=== PATIENT | female | born 1960 | race Caucasian/White ===

== ENCOUNTER → 2022-01-05 09:49 | Outpatient (BNVA) | payer OTHER, SELFPAY | PROVIDERS: PCP Internal Medicine; Visit Provider Internal Medicine Rheumatology | DX: M79.7 Fibromyalgia (principal); M51.36 Other intervertebral disc degeneration, lumbar region; M22.41 Chondromalacia patellae, right knee; G25.81 Restless legs syndrome | CPT/HCPCS: 99212 ==

== ENCOUNTER 2022-08-26 11:07 | Outpatient (REF) | payer OTHER, SELFPAY | END 2022-08-26 11:08 | disposition home or self-care (01) | LOC: CF 11:07 | PROVIDERS: PCP Internal Medicine; Visit Provider Internal Medicine Rheumatology | DX: M79.7 Fibromyalgia (principal); M25.551 Pain in right hip; M25.552 Pain in left hip; M22.41 Chondromalacia patellae, right knee; M51.36 Other intervertebral disc degeneration, lumbar region | CPT/HCPCS: 73502; 99212 ==

== ENCOUNTER 2022-08-26 12:05 | Outpatient (REF) | payer OTHER, SELFPAY ==
[2022-08-26 13:47] LABS: C Reactive Protein 1.02 mg/dL (< or = 0.50)
[2022-08-26 14:23] LABS: Erythrocyte Sedimentation Rate 20 MM/HR (0-20)
== END 2022-08-26 12:06 | disposition home or self-care (01) ==
LOC: HO.10HDL 12:05
PROVIDERS: Visit Provider Internal Medicine Rheumatology
DX: M25.551 Pain in right hip (principal); M25.552 Pain in left hip
CPT/HCPCS: 36415; 85652; 86140

== ENCOUNTER 2023-01-05 08:56 | Outpatient (AMB) | payer OTHER, SELFPAY ==
[2023-01-05 08:58] VITALS: BP 104/70; PULSE 89; TEMP 36.1; O2SAT 98; BMI 28.9
--- NOTE | 2023-01-05 08:58 | A.OFFVIS_ITS ---
Intake Vital Signs 01/05/23 08:58 Height 5 ft 7 in Weight 184 lb 4.903 oz BMI 28.9 BP 104/70 Blood Pressure Location Lt brachial Position Sitting Pulse 89 Pulse Source Pulse Oximeter Temp 97 F Temp Source Skin Pulse Oximetry (%) 98 Oxygen Delivery Method Room Air Intake Visit Reasons: 1Y follow up Intake Note: Patient presents today to follow up on hip pain. Reports having a flare up on left knee about 3 weeks ago, took prednisone she had at home. Would like to know hip xr result from last visit. Assistant Product Manager Required: No Accompanied by: Self / Same As Patient Allergies acetaminophen [From Vicodin] Adverse Reaction (Unknown, Verified 01/05/23 09:02) Dizziness, N/V hydrocodone [From Vicodin] Adverse Reaction (Unknown, Verified 01/05/23 09:02) Dizziness, N/V oxycodone [From Percocet] Adverse Reaction (Unknown, Verified 01/05/23 09:02) Dizziness, N/V HPI HPI Comments History of Present Illness Details The patient presents today for evaluation of her fibromyalgia and recent onset of left knee swelling. She has had previous arthroscopy in that knee maybe 10 years ago. It was occasionally symptomatic after that but about a week ago she developed painful swelling in the knee. The pain started posteriorly but there was also anterior swelling. She was treated with a course of prednisone and the pain has pretty much resolved. She had a similar episode of pain with not much swelling in the right knee earlier in the year. There is no history of exposure to tics. She has no hyperuricemia or history of kidney stones. She tell gets pain in the lower back, buttock area, and lateral hips attributed to fibromyalgia and osteoarthritis. She remains on some Cymbalta 30 mg twice a day, gabapentin 100 mg taking 1 tablet in the morning and 300 at night for the fibromyalgia. She finds the daytime gabapentin helpful for her. It is not sedating. She also is on ropinirole at night and occasional [id number] ibuprofen. [facility] Medical History (Updated 01/05/23 @ 09:44 by Skinny Alba MD) Asthma Degenerative disc disease, lumbar Recurrent cold sores Depression VAIN III (vaginal intraepithelial neoplasia III) Esophageal reflux Fibromyalgia IBS (irritable bowel syndrome) Surgical History History of lumbar surgery S/P arthroscopy of left shoulder S/P left knee arthroscopy Hx of endoscopy Hx of colonoscopy Family History Father Diabetes Mother Diabetes Glaucoma Hx of CABG, Onset Age: 66 Osteoarthritis of both knees Other Family history of Crohn's disease Family history of polyps in the colon Social History Household Members Other:: Son Alcohol intake: current Alcohol intake frequency: holidays/special occasions only Patient Tobacco Use Status: Never used Tobacco Current occupational status: disabled Review of Systems Const Details: Negative for appetite change, weight change, fever, chills, malaise and fatigue Eyes Details: Negative for vision change, dry eyes,headaches and dizziness ENT Details: Negative for hearing change, tinnitus, oral ulcer, nose bleeds and oral dryness. Card Details: Negative chest pain, edema and syncope Resp Details: Negative for SOB, cough and wheezing GI Details: Negative indigestion/heartburn, nausea, abdominal pain, bowel changes, diarrhea, constipation and bloody stool. Skin/Breast Details: Negative for itching, rash, hives, Raynaud's symptoms, sun sensitivity, and skin cancer Neuro Details: Numbness in the right foot and ankle she thinks is due to her lumbar disc surgery or this disease. However that symptom seems to be stable. Negative for epilepsy, palsy, stroke, changes in speech, and weakness Gilles/Lymph Details: Negative for excessive bruising or bleeding. Physical Exam Vital Signs: Last Vital Signs Temp 97 F 01/05/23 08:58 Pulse 89 01/05/23 08:58 BP 104/70 01/05/23 08:58 Pulse Ox 98 01/05/23 08:58 Oxygen Delivery Method Room Air 01/05/23 08:58 BMI result Body Mass Index 28.9 APPEARANCE: Patient in no acute distress EYES no redness, pupils equal and reactive to light, eyelids normal . EXTREMITIES: No edema, no calf tenderness, normal peripheral pulses. NEURO: Oriented and alert x3. No focal weakness. Reflexes symmetric. Numbness over the right heel and lateral aspect of the foot. Gait normal. SKIN: No inflammatory or neoplastic lesions. Normal color and turgor JOINT EXAM: ?? Cervical Spine:.? Slight discomfort with extremes of normal range of motion.? Slight cervical muscle tenderness. Thoracic Spine:.? No scoliosis.? No tenderness on palpation. Lumbar Spine:.? Alignment normal.? She has mild pain with flexion at 60 degrees.? Some paraspinal muscle tenderness.? Straight leg raising causes lumbar pain at about 60 degrees. Strength and reflexes in the lower extremities seem normal. Chest Wall:.? No tenderness, swelling, increased warmth or erythema. Hands:? Right:? Normal pain-free range of motion.? No tenderness in the MCP or PIP joints. No soft tissue swelling.? No flexor tendon triggering, thenar atrophy or sensory loss.? Left:? Normal pain-free range of motion with no tenderness in the small joints of the hand. These joints also have no soft tissue swelling, increased warmth or erythema.? No flexor tendon triggering thenar atrophy or sensory loss.. Wrists:.? Normal pain-free range of motion with slight tenderness but no swelling, increased warmth or erythema. Elbows:. Normal pain-free range of motion without tenderness, swelling, increased warmth or erythema. Shoulders:.??Right:? Full range of motion without pain. No tenderness, weakness, swelling, increased warmth or erythema.? Left:? Slight pain with extremes of normal range of motion with some minimal anterior tenderness without abductor weakness, swelling or adenopathy. Hips:.? Right:? Some lumbar and lateral pain with extremes of normal internal or external rotation.? No groin pain with motion.? Left:? Full range of motion with mild lumbar pain at the extremes of normal range of motion. No groin pain with motion. Hip bursa:.? No tenderness. Knees:? Right:? Slight patellofemoral crepitus and pain with the extremes of normal extension with some mild medial compartment tenderness but no redness or effusion.? Left: ? Normal pain-free range of motion with slight patellofemoral crepitus and mild medial and popliteal tenderness but no swelling, increased warmth or erythema.? Ankles:? Right:? Normal range of motion without pain mild medial lateral tenderness.? No swelling or redness.? Left:? Normal pain-free range of motion without tenderness, swelling, increased warmth or erythema. Feet:? Normal pain-free range of motion with slight tenderness in the insteps.? Otherwise no areas of tenderness, swelling, increased warmth or erythema. Tender points: mild? tenderness to digital palpation at the occiput, trapezius, left second rib, both? knees, greater trochanter and gluteal area bilaterally. ? Results Reviewed Results Reviewed: Laboratory Tests 08/26/22 12:13 ESR 20 C-Reactive Protein 1.[address] [address] XRay Report Signed Patient: Jacqueline Fabian MR#: [id number] : 1960 Acct:[id number] Age/Sex: 62 / F ADM Date: 08/26/[address]: Skinny Alba MD Ordering Physician: Skinny Alba MD Date of Service: 08/26/22 Procedure(s): XR hip RT min 2V Accession Number(s): [id number] cc: Skinny Alba MD~ Bilateral hips, 08/26/2022. INDICATION: Bilateral hip pain. COMPARISON: None TECHNIQUE: AP and frog lateral views of each hip. FINDINGS: Very mild bilateral joint narrowings. No fracture, dislocation or osseous lesions. Visualized SI joints within normal limits. XR/XR hip RT min 2V IMPRESSION: No acute bony pathology bilateral hips. Dictated By: Christi Casillas MD Signed By: <Electronically signed by Christi Casillas MD in [place]> April 2022 lab work from [facility]: White count 11.6, hemoglobin 13.8, sed rate 20, creatinine 0.75, uric acid 4.5 Radiographs from [facility]: April 2022 Left knee read as showing mild osteoarthritis and chondrocalcinosis within an effusion. 12/22/2022 right knee x-ray read as showing mild osteoarthritis. Assessment & Plan Assessment & Plan (1) Swollen L knee: Code(s): M25.462 - Effusion, left knee (2) Fibromyalgia: Code(s): M79.7 - Fibromyalgia (3) Degenerative disc disease, lumbar: Comment: surgery 08/2020 Code(s): M51.36 - Other intervertebral disc degeneration, lumbar region (4) Osteoarthritis of knees, bilateral: Code(s): M17.0 - Bilateral primary osteoarthritis of knee Plan The patient has known lumbar osteoarthritis and fibromyalgia but seemingly has developed more frequent knee pain over the past year. This has been accompanied occasionally by swelling raising the question of inflammatory arthritis. Both knees radiographically have shown mild osteoarthritis. The left knee x-ray did show some chondrocalcinosis so additionally pseudogout is in the differential as is Lyme disease, gout, and other inflammatory arthropathies. However her uric acid has been measured a few times over the years and has always been normal making the likelihood of gout very low. At present there does not seem to be any swelling so the prednisone has been effective at relieving her symptoms. We will check for Lyme disease, acute phase reactants, and CBC. If symptoms continue with a more chronic nature, physical therapy and/or a corticosteroid in jection would be appropriate. If she gets another episode of swelling it would be reasonable to try to aspirate the knee to see if we can document crystal induced arthritis and to assess the degree of inflammatory response. Orders: Orders Lyme IgG/IgM w/reflex to WB Today M25.462 - Effusion, left knee C Reactive Protein Today M25.462 - Effusion, left knee Complete Blood Count Auto Diff Today M25.462 - Effusion, left knee Erythrocyte Sedimentation Rate Today M25.462 - Effusion, left knee Uric Acid Today M25.462 - Effusion, left knee Coding Level of Care Code Est Pt Level 4 (40413) Diagnoses Swollen L knee M25.462 Fibromyalgia M79.7 Degenerative disc disease, lumbar M51.36 Osteoarthritis of knees, bilateral M17.0
== END 2023-01-05 09:32 | disposition home or self-care (01) ==
PROVIDERS: PCP Internal Medicine; Visit Provider Internal Medicine Rheumatology
DX: M25.462 Effusion, left knee (principal); M79.7 Fibromyalgia; M51.36 Other intervertebral disc degeneration, lumbar region; M17.0 Bilateral primary osteoarthritis of knee
CPT/HCPCS: 99214

== ENCOUNTER → 2023-01-05 08:56 | Outpatient (BNVA) | payer OTHER, SELFPAY | PROVIDERS: Visit Provider Internal Medicine Rheumatology | DX: M25.462 Effusion, left knee (principal); M79.7 Fibromyalgia; M51.36 Other intervertebral disc degeneration, lumbar region; M17.0 Bilateral primary osteoarthritis of knee | CPT/HCPCS: 99212 ==

== ENCOUNTER 2023-01-05 09:34 | Outpatient (REF) | payer OTHER, SELFPAY ==
[2023-01-05 10:17] LABS: MANUAL DIFF FLAG NO
[2023-01-05 10:26] LABS: Basophils Absolute Auto 0.1 X10*3/uL (0.0-0.2); Basophils Percent Auto 0.5 % (0-2); Eosinophils Absolute Auto 0.3 X10*3/uL (0.0-0.4); Eosinophils Percent Auto 2.7 % (0-4); Hematocrit 45.8 % (37.0-47.0); Hemoglobin 14.5 g/dl (12.0-16.0); Imm Gran Abs Auto 0.03 X10*3/uL (0.00-0.03); Imm Gran Pct Auto 0.3 % (0.0-0.4); Lymphocytes Percent Auto 31.8 % (20-40); Mean Corpuscular HGB Conc 31.7 g/dl (31.0-35.0); Mean Corpuscular Hemoglobin 29.8 pg (27.0-33.0); Mean Corpuscular Volume 94.2 fL (80.0-98.0); Mean Platelet Volume 9.7 fL (9.4-12.3); Monocytes Absolute Auto 0.6 X10*3/uL (0.1-1.2); Monocytes Percent Auto 6.9 % (2-11); Neutrophils Absolute Auto 5.4 x10*3/uL (2.0-8.3); Neutrophils Percent Auto 57.8 % (45-73); Platelet Count 368 X10*3/uL (160-400); Red Blood Count 4.86 X10*6/uL (4.20-5.50); Red Cell Distribution Width 11.8 % (11.0-16.0); White Blood Count 9.3 X10*3/uL (4.8-10.8)
[2023-01-05 10:50] LABS: C Reactive Protein 0.94 mg/dL (< or = 0.50); Uric Acid 4.9 mg/dL (2.4-5.7)
[2023-01-05 11:08] LABS: Erythrocyte Sedimentation Rate 7 MM/HR (0-20)
[2023-01-07 06:38] LABS: Lyme Abs Screen <0.90 index
== END 2023-01-05 09:35 | disposition home or self-care (01) ==
LOC: HO.10HDL 09:34
PROVIDERS: Visit Provider Internal Medicine Rheumatology
DX: M25.462 Effusion, left knee (principal)
CPT/HCPCS: 36415; 84550; 85025; 85652; 86140; 86617; 86618